=== PATIENT | female | born 1985 | race African-American/Black ===

== ENCOUNTER 2022-05-04 23:08 | Emergency (ER) | payer SELFPAY ==
[2022-05-04 23:56] LABS: Bilirubin Neg (Negative); Blood, Urine 10 (Negative); Clarity Slightly Cloudy (Clear); Glucose, Urine (Dipstick) Normal (Negative); Ketone, Urine 5 mg/dL (Negative); Leukocyte 25 (Negative); Nitrite Negative (Negative); Protein, Urine (Dipstick) Negative (Neg-Trace); Urobilinogen Normal mg/dL (Less than 2)
[2022-05-04 23:57] LABS: Pregnancy Test - Urine (BHCG) Negative (Negative); Pregu Control Background? CLEAR/WHITE (CLR/WHITE); Pregu Control Bar Appear? YES (CONTROL BAR)
[2022-05-05 00:03] LABS: Bacteria/HPF Rare-Few HPF (None Seen); Mucous/LPF 4+ LPF (<2+); RBC/HPF 0-3 HPF (0-3); Squamous Epithelial 0-3 HPF (0-3); WBC/HPF 0-3 HPF (0-3)
[2022-05-06 17:06] LABS: Chlamydia by PCR DETECTED (NotDetected); GC by PCR Not Detected (NotDetected)
== END 2022-05-05 00:15 | disposition home or self-care (01) ==
LOC: CSHERS 23:08
DX: N89.8 Other specified noninflammatory disorders of vagina (principal)
CPT/HCPCS: 81003; 81015; 81025; 87480; 87491; 87510; 87591; 87660; 99284

== ENCOUNTER 2022-11-16 07:40 | Outpatient (CLI) | payer MEDICAID | END 2022-11-16 07:41 | disposition home or self-care (01) | LOC: CSHULT 07:40 | PROVIDERS: ATTEND Nurse Practitioner Women's Health | DX: T83.32XA Displacement of intrauterine contraceptive device, initial encounter (principal) | CPT/HCPCS: 76856 ==

== ENCOUNTER 2023-05-01 09:48 | Emergency (ER) | payer SELFPAY ==
[2023-05-01] MEDS ORDERED: Ketorolac Tromethamine 30 MG/ML VIAL ONE (10:43)
== END 2023-05-01 10:51 | disposition home or self-care (01) ==
LOC: CSHERS 09:48
DX: M54.32 Sciatica, left side (principal)
CPT/HCPCS: 96372; 99283; J1885